=== PATIENT | male | born 1995 | race Two or more races ===

== ENCOUNTER 2017-08-15 11:27 | Emergency (ER) | payer MEDICAID, OTHER ==
[~2017-08-15] VITALS: Ht 180.3 cm; Wt 99.8 kg
[2017-08-15 12:39] VITALS: BP 144/82
== END 2017-08-15 13:44 | disposition home or self-care (01) ==
LOC: ER 11:27
DX: S20.211A Contusion of right front wall of thorax, initial encounter (principal); W01.0XXA Fall on same level from slipping, tripping and stumbling without subsequent striking against object, initial encounter; Y93.89 Activity, other specified; Y92.89 Other specified places as the place of occurrence of the external cause; Y99.8 Other external cause status
CPT/HCPCS: 71101